=== PATIENT | female | born 1975 | race Two or more races ===

== ENCOUNTER → 2017-05-11 15:51 | Emergency (ER) | payer SELFPAY ==
[~2017-05-11 15:51] MED LIST: Ketorolac INJ* 60 MG/2 ML VIAL IM ONE; Ondansetron ODT TAB* 4 MG PO ONE
[2017-05-11 16:01] VITALS: BP 118/77
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
--- NOTE | 2017-05-11 17:40 | RAD ---
INDICATION: Bilateral rib pain COMPARISON: None TECHNIQUE: Multiple views of the ribs were obtained. FINDINGS: Bones: There is no evidence of acute rib fracture. LUNGS: The lungs are clear. There is no pneumothorax. Pleural spaces: There is no evidence of hemothorax. Other: None IMPRESSION: NEGATIVE EXAMINATION.
--- NOTE | 2017-05-11 17:40 | RAD ---
INDICATION: Left shoulder injury COMPARISON: None TECHNIQUE: Routine frontal, Y and axial views were obtained. FINDINGS: The bony structures, joint spaces, and soft tissues are normal for age. IMPRESSION: NEGATIVE EXAMINATION.
== END | disposition home or self-care (01) ==
LOC: ED 15:51
DX: S16.1XXA Strain of muscle, fascia and tendon at neck level, initial encounter (principal); R07.89 Other chest pain; R51 Headache; F41.9 Anxiety disorder, unspecified; V49.9XXA Car occupant (driver) (passenger) injured in unspecified traffic accident, initial encounter; Y93.9 Activity, unspecified; Y92.9 Unspecified place or not applicable
CPT/HCPCS: 70450; 71111; 72125; 93005; 96372; 99282; A9270-GY; J1885

== ENCOUNTER 2018-02-08 20:49 | Emergency (ER) | payer BC, OTHER ==
--- NOTE | 2018-02-08 21:05 | UC ---
Dizzy HPI HPI Summary: 42 yo female presents with chest pressure, dizziness, heart racing, and left arm numbness for the last hour. She tells me that she was at work when she started to feel dizzy and have left arm numbness. She started breathing heavier , felt nauseous, and sat down. [place] a heaviness in her chest. Her coworker's called her who then brought her to [facility] and - per pt - was told they dont see chest pain and should go to [facility] urgent care. Currently she is having left arm numbness, feeling her heart racing, and nausea. Denies headache, vision changes, chest pain, SOB, other pain, recent illness. - History Of Current Complaint Stated Complaint: HIGH BLOOD PRESSURE Time Seen by Provider: 02/08/18 20:55 Hx Obtained From: Patient Onset/Duration: Sudden Onset - Allergies/Home Medications Allergies/Adverse Reactions: Allergies Allergy/AdvReac Type Severity Reaction Status Date / Time No Known Allergies Allergy Verified 02/08/18 21:14 Home Medications: Home Medications Levothyroxine Sodium 75 mcg PO DAILY 02/08/18 [History Confirmed 02/08/18] PMH/Surg Hx/FS Hx/Imm Hx Endocrine History: Thyroid Disease Other History Of: Negative For: Anticoagulant Therapy - Surgical History Surgical History: None Surgery Procedure, Year, and Place: n/a - Family History Known Family History: Positive: Hypertension, Diabetes - Social History Occupation: Employed Full-time Lives: With Family Alcohol Use: None Substance Use Type: None Smoking Status (MU): Never Smoked Tobacco Review of Systems Constitutional: Negative Skin: Negative Eyes: Negative ENT: Negative Respiratory: Negative Cardiovascular: Palpitations Gastrointestinal: Nausea Motor: Negative Neurovascular: Negative Neurological: Numbness - Left arm, Other - Dizziness Psychological: Negative All Other Systems Reviewed And Are Negative: Yes Physical Exam - Summary Physical Exam Summary: GENERAL: NAD. WDWN. No pain distress. SKIN: No rashes, sores, lesions, or open wounds. NECK: Supple. Nontender. No lymphadenopathy. CHEST: CTAB. No r/r/w. No accessory muscle use. Breathing comfortably and in no distress. CV: Tachycardia. Without m/r/g. Pulses intact. Brisk cap refill. ABDOMEN: Soft. NTTP. No distention or guarding. No organomegaly. No CVA tenderness. Bowel sounds present NEURO: A&Ox3. 3 word recall, remote, recent memory, ability to follow 2-step directions, and attention intact. CN II-XII grossly intact. [id number] are intact. Sensory: intact throughout. Normal speech. No facial drooping. PSYCH: Age appropriate behavior. Triage Information Reviewed: Yes Vital Signs: Vital Signs: Temp Pulse Resp BP Pulse Ox 98.8 F 107 20 123/72 97 02/08/18 21:09 02/08/18 21:09 02/08/18 21:09 02/08/18 21:09 02/08/18 21:09 Dizzy Course/Dx - Course Course Of Treatment: EKG sinus tachycardia at 100bpm. early repol ST elevation. No change from previous 04/[address] Andrews. Given the pt's symptoms and sudden onset, I have advised her to be further evaluated in the ED with ambulance transfer. She and declined. I discussed this at length with them and possible risks. They continued to declined and signed out AMA saying they wish to follow up with PCP. - Differential Dx/Diagnosis Provider Diagnoses: Dizziness. Left arm weakness. Tachycardia Discharge - Sign-Out/Discharge Documenting (check all that apply): Discharge/Admit/Transfer - Discharge Plan Condition: Fair Disposition: AGAINST MEDICAL ADVICE Referrals: Miguel Bridges MD [Primary Care Provider] - - Billing Disposition and Condition Condition: FAIR Disposition: Against Medical Advice
[2018-02-08 21:13] VITALS: BP 123/72
== END 2018-02-08 21:27 | disposition left against medical advice (07) ==
LOC: UCEAST 20:49
DX: R42 Dizziness and giddiness (principal); R53.1 Weakness; R00.0 Tachycardia, unspecified; E07.9 Disorder of thyroid, unspecified
CPT/HCPCS: 93005; 99212; G0463